=== PATIENT | male | born 1990 ===

== ENCOUNTER 2023-08-28 10:30 | Day surgery (SDC) | payer OTHER ==
[2023-08-20 17:55] VITALS: BMI 21.6
[2023-08-28] MEDS ORDERED: ROCURONIUM BROMIDE 50 MG/5 ML VIAL ONE (11:22)
[2023-08-28] MEDS ORDERED: PROPOFOL 40 ML ONE (11:22)
[2023-08-28] MEDS ORDERED: SUGAMMADEX SODIUM 200 MG/2 ML VIAL ONE (11:22)
[2023-08-28] MEDS ORDERED: MIDAZOLAM HCL 2 MG/2 ML SINGLE DOSE VIAL ONE (11:22)
[2023-08-28] MEDS ORDERED: SEVOFLURANE 250 ML BTL ONE (11:23)
[2023-08-28] MEDS ORDERED: KETOROLAC TROMETHAMINE 30 MG/1 ML VIAL ONE (11:23)
[2023-08-28] MEDS ORDERED: DEXAMETHASONE SOD PHOSPHATE 4 MG/1 ML VIAL ONE (11:23)
[2023-08-28] MEDS ORDERED: LIDOCAINE HCL/PF 2% SDV 5ML VIAL ONE (11:23)
[2023-08-28] MEDS ORDERED: ONDANSETRON 4 MG/2 ML VIAL ONE (11:23)
[2023-08-28] MEDS ORDERED: ceFAZolin SODIUM 1 GM VIAL ONE (11:40)
[2023-08-28] MEDS: ceFAZolin SODIUM 1 GM VIAL IVPB ONE (11:41)
[2023-08-28] MEDS: BUPIVACAINE HCL/PF 0.5% (5 MG/ML) 30 ML VIAL IJ ONE (11:51)
[2023-08-28] MEDS ORDERED: oxyCODONE HCL 5 MG TABLET PO PRN ×2 (12:47)
[2023-08-28] MEDS ORDERED: ACETAMINOPHEN 1000 MG/100 ML BAG IVPB PRN (12:47)
[2023-08-28] MEDS ORDERED: ONDANSETRON 4 MG/2 ML VIAL IVPUSH PRN (12:47)
[2023-08-28] MEDS ORDERED: LACTATED RINGERS SOLUTION 1,000 ML IV SCH (13:00)
[2023-08-28 14:21] VITALS: RESP 20
[2023-08-28] MEDS ORDERED: CEFAZOLIN SODIUM 2 GM in DEXTROSE 5%-WATER 100 ML IVPB ONE (14:30)
[2023-08-28 15:14] VITALS: BP 134/76; PULSE 61; TEMP 97.7
== END 2023-08-28 15:05 | disposition home or self-care (01) ==
LOC: JASU-SURG 10:30
PROVIDERS: ATTEND Surgery
PROC: 0YU60JZ Supplement Left Inguinal Region with Synthetic Substitute, Open Approach (ICD-10-PCS; principal; 2023-08-28 14:30)
DX: K40.90 Unilateral inguinal hernia, without obstruction or gangrene, not specified as recurrent (principal)
CPT/HCPCS: 94760